=== PATIENT | male | born 2005 | race Hispanic/Latino ===

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

== ENCOUNTER 2025-01-11 15:47 | Emergency (ER) | payer OTHER, SELFPAY ==
[2025-01-11 16:00] VITALS: BP 148/78; PULSE 76; RESP 16; TEMP 37; O2SAT 100
--- NOTE | 2025-01-11 16:44 | ED_ITS ---
HPI - URI/Sore Throat General Chief Complaint: Upper Respiratory Infection Stated Complaint: Sinus/Sore Throat Time Seen by Provider: 01/11/25 16:35 Source: patient and RN notes reviewed Mode of arrival: ambulatory Limitations: no limitations History of Present Illness HPI Narrative: 19-year-old male presents Express Care complaining of upper respiratory symptoms for approximately 7 days. Patient reports cough, congestion, sinus pressure, mucopurulent nasal drainage. Patient denies any other upper respiratory symptoms, chest pain, shortness of breath, nausea, vomiting, diarrhea, or any other symptoms. Patient said he thought his symptoms were getting better and other getting much worse. Patient denies any significant past medical history. Patient has been taking NyQuil at night to help with symptoms. Related Data Allergies Allergy/AdvReac Type Severity Reaction Status Date / Time No Known Allergies Allergy Verified 01/11/25 16:03 Review of Systems Review of Systems: CONSTITUTIONAL: Denies fever, chills, body aches, or sweats. EYES: Denies visual changes, redness, or discharge. ENT: Positive for rhinorrhea, congestion, sinus pressure. Negative for sore throat, or otalgia. CARDIOVASCULAR: Denies chest pain, palpitations, or edema. RESPIRATORY: Positive for cough. Negative for dyspnea or wheezing. GASTROINTESTINAL: Denies abdominal pain, nausea, vomiting, or diarrhea. GENITOURINARY: Denies dysuria or hematuria. SKIN: Denies rash or itching. MUSCULOSKELETAL: Denies back pain, joint pain, or myalgia. NEUROLOGIC: Denies headache, numbness, or weakness. PSYCHIATRIC: Denies anxiety or depression. All other systems reviewed are negative, except as documented in HPI. PMFSH Past Medical History Medical History Hypertension Hypercholesterolemia Coronavirus infection September 2019 Surgical History Surgical History No pertinent past surgical history Social History Social History Smoking status: Never smoker Comments At the time of my signature, I reviewed and agree with the nursing past medical, surgical, social, and family history. There is no relevant family history pertinent to the patient complaint. Exam Narrative: GENERAL: This is a well-nourished, well-developed adult, in no apparent distress. They are non ill-appearing, nontoxic appearing. HEAD: normocephalic, atraumatic. EYES: Sclera clear/white. Vision is grossly intact. Conjunctiva normal bilaterally. Extraocular movements intact. EARS: External ears normal, auditory canals clear and without drainage, TMs without erythema or perforation. Hearing grossly intact. NOSE: External nose normal with no obvious nasal discharge, nasal turbinates erythematous, no rhinorrhea. Maxillary sinus tenderness to palpation. THROAT: Mucous membranes moist, posterior pharynx cobblestone appearing with erythema, without swelling, without exudate. Uvula is midline. Postnasal drip present. NECK: Neck supple, non-tender without lymphadenopathy, masses or thyromegaly. CARDIOVASCULAR: Regular rate and rhythm without murmurs, gallops, or rubs. RESPIRATORY: Clear to auscultation. Breath sounds equal bilaterally. No wheezes, rales, or rhonchi. SKIN: warm, Dry, intact with no suspicious lesions or rash, good texture and turgor. NEURO: awake, alert, and oriented to person, place and time. There were no obv ious focal neurologic abnormalities. EXTREMITIES: No joint tenderness, effusion, or edema noted. BACK: Nontender without deformity. Course Course Emergency Course: Portions of this record may have been created with voice recognition software Level of Care: Express Care Visit Vital Signs Vital signs: Vital Signs Temperature 98.6 F 01/11/25 16:00 Pulse Rate 76 01/11/25 16:00 Respiratory Rate 16 01/11/25 16:00 Blood Pressure 148/78 H 01/11/25 16:00 Pulse Oximetry 100 01/11/25 16:00 Oxygen Delivery Room Air 01/11/25 16:00 Temperature 98.6 F 01/11/25 16:00 Pulse Rate 76 01/11/25 16:00 Respiratory Rate 16 01/11/25 16:00 Blood Pressure 148/78 H 01/11/25 16:00 Pulse Oximetry 100 01/11/25 16:00 Oxygen Delivery Room Air 01/11/25 16:00 MDM - URI/Sore Throat MDM Narrative Medical decision making narrative: Given length the patient's symptoms likely developed a bacterial sinusitis. Will treat with Augmentin. Discussed physical exam findings. Advised supportive measures and signs/symptoms to go to the ER. Pt is appropriate for outpt treatment and f/u. Differential Diagnosis Differential diagnosis: Likely upper respiratory infection, sinusitis, viral infection and pharyngitis Discharge Plan Discharge Clinical Impression: Sinusitis Qualifiers: Sinusitis location: unspecified location Chronicity: acute Recurrence: non- recurrent Qualified Code(s): J01.90 - Acute sinusitis, unspecified Patient Disposition: Home Condition: Stable Instructions: Antibiotic Form, Sinusitis (ED) Additional Instructions: Take the antibiotics as directed and complete the course even if you start to feel better. You may use a Neti pot saline rinse 3 times a day with lukewarm distilled water You may take ibuprofen 600 mg to 800 mg every 6-8 hours. Do not exceed more than 800 mg of ibuprofen per dose. Do not exceed more than 3200 mg ibuprofen in a day. You may take up to 1000 mg Tylenol every 6-8 hours. Do not exceed 1000 mg per dose, do exceed more than 4000 mg of Tylenol in a day. Use a humidifier or vaporizer at night. Drink plenty of water. 8-10 glasses per day. Use flonase 2 times per day for 5 days then as needed Take mucinex 2 times per day and be sure to take with 8oz of water. Follow up with Primary provider in 3-5 days Please go to the ER if he develops any difficulty breathing, chest pain, nausea vomiting, worsening symptoms, or any other concerns Patient Language: [place] Prescriptions: New amoxicillin-pot clavulanate 875-125 mg tablet 1 tablet PO Q12H 7 Days Qty: 14 0RF Follow-up/Referrals: Sheldon,ROSAMARIA Garza [Primary Care Provider] Stand Alone Forms: Work/School Release IP Time of Disposition: 16:44
== END 2025-01-11 16:48 | disposition home or self-care (01) ==
PROVIDERS: PCP Registered Nurse
DX: J01.90 Acute sinusitis, unspecified (principal); I10 Essential (primary) hypertension; E78.00 Pure hypercholesterolemia, unspecified; Z86.16 Personal history of COVID-19
CPT/HCPCS: 99213; G0463